=== PATIENT | male | born 1960 | race Caucasian/White ===

== ENCOUNTER 2017-10-19 13:15 | Emergency (ER) | payer OTHER, SELFPAY ==
[2017-10-19 13:31] VITALS: BP 139/82; PULSE 68; RESP 15; TEMP 36.3; O2SAT 100; BMI 25.8
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
[2017-10-19] MEDS: HYDROCODONE/ACET 5/325 TABLET 1 TAB PO (14:30)
[2017-10-19] MEDS: IBUPROFEN 400 MG TABLET 800 MG PO (15:02)
[2017-10-19 15:16] VITALS: BP 125/67; PULSE 70; RESP 12; O2SAT 98
== END 2017-10-19 15:38 | disposition home or self-care (01) ==
PROVIDERS: Emergency Provider Internal Medicine; Family Provider Internal Medicine; PCP Internal Medicine
DX: S06.0X9A Concussion with loss of consciousness of unspecified duration, initial encounter (principal); V18.2XXA Unspecified pedal cyclist injured in noncollision transport accident in nontraffic accident, initial encounter
CPT/HCPCS: 70450; 72125; 99283; 99284

== ENCOUNTER → 2020-04-26 20:39 | Outpatient (ROUT) | payer OTHER, SELFPAY ==
[2020-04-26 23:00] LABS: Alanine Aminotransferase 31 IU/L (<50); Albumin 4.2 g/dL (3.5-5.0); Albumin Globulin Ratio 1.5 (1.0-2.8); Alkaline Phosphatase 59 U/L (38-126); Aspartate Aminotransferase 41 IU/L (17-59); BUN Creatinine Ratio 16.1 (6-22); Bilirubin Total 0.5 mg/dL (0.2-1.3); Blood Urea Nitrogen 15 mg/dL (9-20); Calcium 9.4 mg/dL (8.4-10.2); Carbon Dioxide 30 mmol/L (22-32); Chloride 100 mmol/L (98-107); Cholesterol 192 mg/dL (140-199); Estimated Glomerular Filt Rate > 60.0 mL/min (>60); Globulin 2.8 g/dL (1.7-4.1); Glucose 98 mg/dL (80-110); HDL Cholesterol 88 mg/dL (40-60); HEMOLYSIS < 15 (0-50); LDL Cholesterol Calculated 95 mg/dL (<100); Potassium 4.6 mmol/L (3.4-5.1); Sodium 136 mmol/L (137-145); Triglycerides 47 mg/dL (35-150)
[2020-04-26 23:30] LABS: Prostate Specific Antigen 3.07 ng/mL (0.10-4.00)
== END ==
PROVIDERS: Family Provider Internal Medicine; PCP Internal Medicine; Visit Provider Internal Medicine
DX: R73.01 Impaired fasting glucose (principal); E78.2 Mixed hyperlipidemia; Z12.5 Encounter for screening for malignant neoplasm of prostate
CPT/HCPCS: 80053; 80061; 84153

== ENCOUNTER 2022-07-04 11:56 | Day surgery (SDC) | payer OTHER, SELFPAY ==
--- NOTE | 2022-07-04 | PATH_ITS ---
[facility] Accession Number: [id number] No. of containers..01 Tissue . 01 Material submitted: . colon - DESCENDING COLON POLYP . 01 Diagnosis: Descending Colon, Polyp, Biopsy: Hyperplastic polyp. [facility] 07/10/2022 0939 Local . 01 Electronically signed: . Mary Arora MD, Pathologist NPI- [id number] . 01 Gross description: . DESCENDING COLON POLYP: Received in formalin is 1 fragment(s) of solano, soft tissue measuring 0.3 x 0.2 x 0.1 cm submitted entirely in 1 cassette(s) /CPE 07/06/2022 0725 Local . 01 Pathologist provided ICD-10: K63.5 . 01 CPT . 340156 Specimen Comment: A courtesy copy of this report has been sent to [phone] Performed at: 01 [facility] [address] [place] [address], [place], [place] [id number] MD Erwin Yoder MD Phone: [phone]
[2022-07-04] MEDS: LACTATED RINGERS 1,000 ML 42 ML IV (12:30)
[2022-07-04 12:44] VITALS: BP 126/74; PULSE 77; RESP 16; TEMP 36.8; O2SAT 99; BMI 27.0
--- NOTE | 2022-07-04 13:50 | PM.HP.1 ---
History of Present Illness History of Present Illness Date Patient Seen: 07/04/22 Time Patient Seen: 13:50 Chief complaint: Colonoscopy Narrative: The patient presents for colorectal screening. He had a normal colonoscopy 10 years ago.. No personal or family history of colon cancer. On further history denies any recent gastrointestinal symptoms. No nausea, vomiting, abdominal pain, loss of appetite, unexplained weight loss, change in bowel habits, or blood per rectum. Patient History Medical History (Updated 11/03/17 @ 00:00 by ) Hyperlipidemia Pelvic abscess in male Surgical History (Updated 10/19/17 @ 14:03 by Monique Shook PA-C) H/O umbilical hernia repair Status post appendectomy Family & Social History Social History: household members none Tobacco & Substance use: Smoking Status Never smoker alcohol intake never alcohol intake frequency 0-2 drinks per day Substance Use Type does not use Meds Home Medications and Allergies Home Medications Medication Instructions Recorded Confirmed Type Fish Oil 1 cap PO DAILY 10/19/17 07/04/22 History Glucosamine 1 tab PO DAILY 10/19/17 07/04/22 History multivitamin 1 tab PO DAILY 10/19/17 07/04/22 History simvastatin 20 mg tablet 20 mg PO BEDTIME 10/19/17 07/04/22 History Allergies Allergy/AdvReac Type Severity Reaction Status Date / Time venom-honey bee Allergy Unknown Verified 07/04/22 12:42 [BEE VENOM (HONEY BEE)] Exam Vital Signs (past 8 hours): - 07/04/22 12:44 Temperature 98.2 F Pulse Rate 77 Respiratory Rate 16 Blood Pressure 126/74 Pulse Oximetry 99 Oxygen Delivery Method Room Air Oxygen Delivery Method Room Air Narrative Exam Narrative: General adult man alert oriented no acute distress Abdomen soft nontender nondistended Assessment & Plan Assessment & Plan narrative: The patient requires colorectal screening and colonoscopy is recommended. Technical details were discussed. Risks, benefits, alternatives explained. Risks including but not limited to myocardial infarction, aspiration, bleeding, pain, missed lesion, incomplete examination, need for further radiographic studies, colonic perforation, and need for major abdominal surgery were discussed. All questions were answered to their satisfaction, and they are in agreement with this plan. Time Spent With Patient Critical Care time: I spent a total of [] minutes of critical care time on this patient's care today; this time is exclusive of procedural time.
--- NOTE | 2022-07-04 13:51 | PM.OP.COLON ---
Operative Date/Time/Diagnoses Date of procedure: 07/04/22 Time of procedure: 13:51 Pre-op diagnosis: Colorectal screening Post-op diagnosis: other (Colonic polyp x1) Procedure & Clinicians Study performed: Colonoscopy Same procedure as scheduled: Yes Indications: Colorectal screening Surgeon: Jonathan Billings Procedure Notes Procedure in detail: The history and physical was performed/updated and the patient is ASA class is 2. The procedure was discussed in detail with the patient. Potential risks complications including infection, bleeding, missed diagnosis, perforation, need for surgery, and were explained. Their questions were answered and informed consent was obtained. Patient was brought to the procedure room and placed standard monitoring equipment. The patient's vital signs were monitored continuously throughout the entire procedure. Prior to starting time-out was performed. The patient was placed in the left lateral recumbent position. Procedural sedation was administered by anesthesia. Examination began with a thorough inspection of the perianal area there was no evidence of fissures, fistulae, external hemorrhoids or cutaneous malignancy. The colonoscopy scope was then placed into the anal canal and was advanced to the cecum, which was identified by the ileocecal valve, the appendiceal orifice and the confluence of the taenia. The scope was then slowly withdrawn examining colon thoroughly in all directions, irrigating it of any residual stool. Within the descending colon there was a less than 1 cm polyp which was removed in its entirety with biopsy forceps The patient tolerated the procedure well. They will be discharged once criteria are met. The prep was of good/excellent quality. The withdrawl time was 8 minutes. Specimen(s): other (Descending colon polyp) Impression: Colonic polyp x1 Post-procedure Recommendations: High fiber diet Plan for aftercare: Follow-up is dependent on pathology findings Disposition: same day surgery
[2022-07-04 14:37] VITALS: BP 124/66; PULSE 68; RESP 13; TEMP 36.5; O2SAT 99
[2022-07-04 14:42] VITALS: BP 130/73; PULSE 72; RESP 17; O2SAT 99
[2022-07-04 14:47] VITALS: PULSE 72; RESP 13; O2SAT 99
[2022-07-04 14:54] VITALS: BP 138/81; PULSE 68; RESP 15; O2SAT 100
== END 2022-07-04 15:00 | disposition home or self-care (01) ==
PROVIDERS: Family Provider Internal Medicine; PCP Family Medicine; Referring Provider Surgery; Visit Provider Surgery
PROC: 0DJD8ZZ Inspection of Lower Intestinal Tract, Via Natural or Artificial Opening Endoscopic (ICD-10-PCS; CPT 45378; principal; 2022-07-04 13:15)
DX: Z12.11 Encounter for screening for malignant neoplasm of colon (principal); K63.5 Polyp of colon
CPT/HCPCS: 45380; J2704

== ENCOUNTER → 2024-07-02 13:01 | Outpatient (CLI) | payer MEDICARE, SELFPAY ==
--- NOTE | 2024-07-02 | DI.US.S_ITS ---
PROCEDURE: US ART LOW EXT BILAT W/SYDNEE INDICATIONS: CLAUDICATION RLE TECHNIQUE: Color and pulse Doppler interrogation was performed of both lower extremity arterial systems, with image documentation. COMPARISON: None. FINDINGS: Right lower extremity: SYDNEE 0.74 Common femoral artery: 105 cm/sec, with triphasic flow. Deep femoral artery: 213 cm/sec, with triphasic flow. Proximal superficial femoral artery: 98 cm/sec, with triphasic flow. Mid superficial femoral artery: 74 cm/sec, with triphasic flow. Distal superficial femoral artery: 48 cm/sec, with triphasic flow. Popliteal artery: 42 cm/sec, with triphasic flow. Posterior tibial artery: 32 cm/sec, with monophasic flow. Anterior tibial artery/dorsalis pedis: 33 cm/sec, with monophasic flow. Garcia-scale imaging description: Calcific common femoral artery plaque without hemodynamically significant stenosis. No significant SFA stenotic disease. Mild popliteal disease. Monophasic posterior tibial and dorsalis pedis waveforms suggest distal disease. Left lower extremity: SYDNEE 1.09 Common femoral artery: 107 cm/sec, with triphasic flow. Deep femoral artery: 113 cm/sec, with triphasic flow. Proximal superficial femoral artery: 83 cm/sec, with triphasic flow. Mid superficial femoral artery: 67 cm/sec, with triphasic flow. Distal superficial femoral artery: 93 cm/sec, with triphasic flow. Popliteal artery: 78 cm/sec, with triphasic flow. Posterior tibial artery: 97 cm/sec, with triphasic flow. Anterior tibial artery/dorsalis pedis: 39 cm/sec, with triphasic flow. Garcia-scale imaging description: Calcific plaque. No significant stenotic disease. All waveforms triphasic. IMPRESSION: 1. On the right, there is a diminished SYDNEE. There is no identified stenosis between the common femoral and the popliteal. There is distal disease. 2. On the left, no significant stenotic disease is noted. Normal waveforms throughout. Dictated by: Kavon Saldana M.D. on 07/03/2024 at 20:18 Approved by: Kavno Saldana M.D. on 07/03/2024 at 20:22
== END ==
PROVIDERS: Family Provider Internal Medicine; PCP Family Medicine; Referring Provider Family Medicine; Visit Provider Family Medicine
DX: I73.9 Peripheral vascular disease, unspecified (principal)
CPT/HCPCS: 93922; 93925

== ENCOUNTER → 2024-07-12 10:03 | Outpatient (CLI) | payer MEDICARE, SELFPAY ==
--- NOTE | 2024-07-12 10:53 | DI.CT.S_ITS ---
PROCEDURE: CT LUNG LOW DOSE SCREENING INDICATIONS: Tobacco dependence due to cigarettees TECHNIQUE: Noncontrast 2.0-2.5 mm thick sections acquired from the pulmonary apices to the posterior costophrenic angles. 7 mm thick axial MIP, and 5 mm coronal and sagittal reformats were then acquired. For radiation dose reduction, the following was used: automated exposure control, adjustment of mA and/or kV according to patient size. COMPARISON: None. FINDINGS: Image quality: Diagnostic Lungs and pleura: No suspicious focal pulmonary nodule. Scattered atelectasis. No dense airspace consolidation. No pleural effusions. Mediastinum, heart, and esophagus: Coronary calcifications. Normal heart size. No pathologic lymphadenopathy by size criteria Chest wall and thyroid: Unremarkable Upper abdomen: No gross abnormality on these noncontrast low-dose images Bones: There are degenerative changes. IMPRESSION: No suspicious pulmonary nodules. LUNG-RADS 1; continued annual screening, if eligible. Clinically Significant Non-pulmonary Findings: Coronary calcifications Dictated by: Az Conte M.D. on 07/12/2024 at 18:01 Approved by: Az Conte M.D. on 07/12/2024 at 18:03
== END ==
PROVIDERS: Family Provider Internal Medicine; PCP Family Medicine; Referring Provider Family Medicine; Visit Provider Family Medicine
DX: F17.211 Nicotine dependence, cigarettes, in remission (principal); Z12.2 Encounter for screening for malignant neoplasm of respiratory organs
CPT/HCPCS: 71271

== ENCOUNTER → 2024-08-18 10:42 | Outpatient (CLI) | payer MEDICARE, SELFPAY ==
--- NOTE | 2024-08-18 10:44 | DI.US.S_ITS ---
PROCEDURE: US ABD AORTA ANEURYSM SCREEN INDICATIONS: SCREENING FOR AAA TECHNIQUE: Real time scanning was performed of the aorta and iliac arteries, with image documentation. COMPARISON: None. FINDINGS: Aorta: Proximal aortic diameter measures 2.6 cm. Mid-aorta measures 2.1 cm. Distal aortic diameter is 2.1 cm. Iliac arteries: Right common iliac artery measures 0.9 cm. Left common iliac artery measures 0.9 cm. IMPRESSION: No infrarenal aortic aneurysm. Dictated by: Boni Roy M.D. on 08/18/2024 at 13:47 Approved by: Boni Roy M.D. on 08/18/2024 at 13:47
== END ==
PROVIDERS: Family Provider Internal Medicine; PCP Family Medicine; Referring Provider Family Medicine; Visit Provider Family Medicine
DX: Z13.6 Encounter for screening for cardiovascular disorders (principal)
CPT/HCPCS: 76706